=== PATIENT | male | born 1980 | race Two or more races ===

== ENCOUNTER 2018-09-27 07:31 | Outpatient (CLI) | payer OTHER | END 2018-09-27 07:43 | disposition home or self-care (01) | LOC: LAB 07:31 | DX: D51.1 Vitamin B12 deficiency anemia due to selective vitamin B12 malabsorption with proteinuria (principal); K21.0 Gastro-esophageal reflux disease with esophagitis; K90.89 Other intestinal malabsorption; R71.8 Other abnormality of red blood cells; J32.4 Chronic pansinusitis; G47.33 Obstructive sleep apnea (adult) (pediatric); M51.06 Intervertebral disc disorders with myelopathy, lumbar region; D50.8 Other iron deficiency anemias; D51.8 Other vitamin B12 deficiency anemias; I10 Essential (primary) hypertension; E03.8 Other specified hypothyroidism; E06.3 Autoimmune thyroiditis; R97.0 Elevated carcinoembryonic antigen [CEA] ==

== ENCOUNTER 2022-09-29 07:04 | Outpatient (CLI) | payer OTHER | END 2022-09-29 07:12 | disposition home or self-care (01) | LOC: LAB 07:04 | PROVIDERS: ATTEND Internal Medicine Hematology & Oncology | DX: D50.8 Other iron deficiency anemias (principal); R79.9 Abnormal finding of blood chemistry, unspecified; I10 Essential (primary) hypertension; R74.02 Elevation of levels of lactic acid dehydrogenase [LDH]; D51.1 Vitamin B12 deficiency anemia due to selective vitamin B12 malabsorption with proteinuria; K90.89 Other intestinal malabsorption; G47.33 Obstructive sleep apnea (adult) (pediatric); M51.06 Intervertebral disc disorders with myelopathy, lumbar region ==

== ENCOUNTER → 2023-01-26 06:46 | Outpatient (CLI) | payer OTHER | END | disposition home or self-care (01) | LOC: LAB 06:46 | PROVIDERS: ATTEND Internal Medicine Hematology & Oncology | DX: D50.8 Other iron deficiency anemias (principal); R79.9 Abnormal finding of blood chemistry, unspecified; I10 Essential (primary) hypertension; R74.02 Elevation of levels of lactic acid dehydrogenase [LDH]; R97.0 Elevated carcinoembryonic antigen [CEA]; R97.8 Other abnormal tumor markers; R97.20 Elevated prostate specific antigen [PSA]; E03.8 Other specified hypothyroidism; D63.1 Anemia in chronic kidney disease; R71.8 Other abnormality of red blood cells ==

== ENCOUNTER 2023-02-03 07:32 | Outpatient (CLI) | payer OTHER | END 2023-02-03 07:35 | disposition home or self-care (01) | LOC: LAB 07:32 | PROVIDERS: ATTEND Internal Medicine Hematology & Oncology | DX: D50.8 Other iron deficiency anemias (principal); R79.9 Abnormal finding of blood chemistry, unspecified; I10 Essential (primary) hypertension; R74.02 Elevation of levels of lactic acid dehydrogenase [LDH]; K76.89 Other specified diseases of liver; E03.8 Other specified hypothyroidism; R97.0 Elevated carcinoembryonic antigen [CEA]; R97.8 Other abnormal tumor markers; R97.20 Elevated prostate specific antigen [PSA]; D63.1 Anemia in chronic kidney disease; N18.9 Chronic kidney disease, unspecified; D63.8 Anemia in other chronic diseases classified elsewhere; R71.8 Other abnormality of red blood cells; D51.1 Vitamin B12 deficiency anemia due to selective vitamin B12 malabsorption with proteinuria; K21.00 Gastro-esophageal reflux disease with esophagitis, without bleeding; K90.89 Other intestinal malabsorption; J32.4 Chronic pansinusitis; G47.33 Obstructive sleep apnea (adult) (pediatric); M51.06 Intervertebral disc disorders with myelopathy, lumbar region ==

== ENCOUNTER 2023-02-03 08:17 | Outpatient (CLI) | payer OTHER | END 2023-02-03 08:19 | disposition home or self-care (01) | LOC: SONOGRAMA 08:17 | PROVIDERS: ATTEND Internal Medicine Hematology & Oncology | DX: E04.2 Nontoxic multinodular goiter (principal) ==

== ENCOUNTER 2023-02-20 10:02 | Outpatient (CLI) | payer OTHER | END 2023-02-20 10:04 | disposition home or self-care (01) | LOC: SONOGRAMA 10:02 | PROVIDERS: ATTEND Pathology Anatomic Pathology & Clinical Pathology | DX: D34 Benign neoplasm of thyroid gland (principal); E04.9 Nontoxic goiter, unspecified ==

== ENCOUNTER → 2023-04-27 | Emergency (ER) | payer OTHER ==
[~2023-04-27] VITALS: Ht 185.4 cm; Wt 108.9 kg
[~2023-04-27] MED LIST: FUSION PLUS CA1 EACH; LEVOTHYROXINE25 MCG PO
== END | disposition home or self-care (01) ==
LOC: ER 07:09
DX: I10 Essential (primary) hypertension (principal)

== ENCOUNTER 2023-04-28 06:08 | Outpatient (CLI) | payer OTHER | END 2023-04-28 06:12 | disposition home or self-care (01) | LOC: LAB 06:08 | PROVIDERS: ATTEND Internal Medicine Hematology & Oncology | DX: D50.8 Other iron deficiency anemias (principal); R79.9 Abnormal finding of blood chemistry, unspecified; I10 Essential (primary) hypertension; R74.02 Elevation of levels of lactic acid dehydrogenase [LDH]; K76.89 Other specified diseases of liver; D51.8 Other vitamin B12 deficiency anemias; E03.8 Other specified hypothyroidism; D51.1 Vitamin B12 deficiency anemia due to selective vitamin B12 malabsorption with proteinuria; K90.89 Other intestinal malabsorption; J32.4 Chronic pansinusitis; G47.33 Obstructive sleep apnea (adult) (pediatric); M51.06 Intervertebral disc disorders with myelopathy, lumbar region; K21.00 Gastro-esophageal reflux disease with esophagitis, without bleeding ==